=== PATIENT | male | born 1955 ===

== ENCOUNTER 2022-07-24 05:44 | Day surgery (SDC) | payer OTHER ==
[~2022-07-24] VITALS: Ht 165.1 cm; Wt 73.0 kg
[~2022-07-24 05:44] MED LIST: MAGNESIUM400 M1 PO
[2022-07-24] MEDS ORDERED: ULTRACET PO (09:30)
[2022-07-24] MEDS ORDERED: COLACE100 MG PO (09:30)
== END 2022-07-24 14:05 | disposition home or self-care (01) ==
LOC: CIR.AMB 05:44
PROVIDERS: ATTEND Surgery
DX: C21.8 Malignant neoplasm of overlapping sites of rectum, anus and anal canal (principal); A63.0 Anogenital (venereal) warts; K62.89 Other specified diseases of anus and rectum; Z20.822 Contact with and (suspected) exposure to COVID-19